=== PATIENT | male | born 2000 | race Caucasian/White ===

== ENCOUNTER 2021-11-11 11:42 | Emergency (ER) | payer OTHER ==
[~2021-11-11] VITALS: Ht 162.6 cm; Wt 54.4 kg
--- NOTE | 2021-11-11 12:13 | NUR ---
PT SEEN AND EVALUATED BY DR MENDOZA. PT REMAINS AWAKE AND ALERT.
--- NOTE | 2021-11-11 12:19 | NUR ---
ICEPACK APPLIED TO LT ANKLE.
[2021-11-11] MEDS ORDERED: ALBU2.5V38 IH (12:23)
[2021-11-11] MEDS ORDERED: IBUPROFEN 600 MG TABLET PO ONE (13:15)
[2021-11-11] MEDS ORDERED: IBUPROFEN 600 MG TABLET ONE (13:22)
--- NOTE | 2021-11-11 13:23 | NUR ---
Crutches dispensed. Pt instructed on proper use of crutches. Patient able to demonstrate correct use of crutches.
--- NOTE | 2021-11-11 13:35 | NUR ---
Patient discharged to home in stable condition. Written and verbal after care instructions given. Patient verbalizes understanding of instructions. Stressed follow up or return to ER for worsening s/s.
[2021-11-11 13:41] VITALS: BP 113/70
== END 2021-11-11 13:43 | disposition home or self-care (01) ==
LOC: ER 11:42
DX: S93.402A Sprain of unspecified ligament of left ankle, initial encounter (principal); S00.33XA Contusion of nose, initial encounter; W17.89XA Other fall from one level to another, initial encounter; Y93.89 Activity, other specified; Y92.89 Other specified places as the place of occurrence of the external cause; J45.909 Unspecified asthma, uncomplicated
CPT/HCPCS: 70160; 70450; 73610; A4663